=== PATIENT | female | born 1955 | race Caucasian/White ===

== ENCOUNTER 2025-01-15 13:30 | Emergency (ER) | payer MEDICARE, MEDICAID ==
[~2025-01-15] VITALS: Ht 157.5 cm; Wt 100.0 kg
[2025-01-15 15:41] VITALS: BP 145/69; TEMP 99.2; O2SAT 97
== END 2025-01-15 16:12 | disposition home or self-care (01) ==
LOC: M ED 13:30
DX: S52.572A Other intraarticular fracture of lower end of left radius, initial encounter for closed fracture (principal); S52.615A Nondisplaced fracture of left ulna styloid process, initial encounter for closed fracture; S00.83XA Contusion of other part of head, initial encounter; Y92.9 Unspecified place or not applicable; Y93.9 Activity, unspecified; Y99.9 Unspecified external cause status; W01.0XXA Fall on same level from slipping, tripping and stumbling without subsequent striking against object, initial encounter